=== PATIENT | male | born 1945 | race Caucasian/White ===

== ENCOUNTER 2018-11-19 08:00 | Day surgery (SDC) | payer MEDICARE, BC ==
[2018-11-19] VITALS (8 sets, daily range): BP systolic 112–137; BP diastolic 68–89
[2018-11-19 09:12] LABS: ALBUMIN 2.7 G/DL (3.4-5.0); ANION GAP 14 (8-16); BLOOD UREA NITROGEN 39 MG/DL (7-18); BUN/CREATININE RATIO 16.2 (5.4-32.0); CALCIUM 11.3 MG/DL (8.5-10.1); CHLORIDE 104 MMOL/L (99-107); CREATININE 2.41 MG/DL (0.60-1.10); GLUCOSE 81 MG/DL (70-104); SODIUM 141 MMOL/L (135-145); TOTAL CARBON DIOXIDE 22.7 MMOL/L (24-32); eGFR 26 ML/MIN
[2018-11-19 09:18] LABS: POTASSIUM 4.5 MMOL/L (3.5-5.1)
[2018-11-19] MEDS ORDERED: midazolam 2 mg/2 ml injection IV PRN (09:20)
[2018-11-19] MEDS ORDERED: fentaNYL/PF 50MCG/1 ML 2ML syringe IV PRN (09:20)
[2018-11-19] MEDS ORDERED: LIDOcaine 1%/PF 5ML 10 MG/ML VIAL SQ ONE (09:20)
[2018-11-19 09:22] LABS: BASOPHILS % (AUTO) 0.7 % (0-1); EOSINOPHILS # (AUTO) 0.1 X10'3 (0-0.9); EOSINOPHILS % (AUTO) 1.3 % (0-6); HEMATOCRIT 32.2 % (42.0-52.0); HEMOGLOBIN 10.7 g/dl (14.0-17.9); LYMPHOCYTES # (AUTO) 0.8 X10'3 (1.1-4.8); LYMPHOCYTES % (AUTO) 16.3 % (21-51); MEAN CORPUSCULAR HEMOGLOBIN 31.5 PG (27.0-31.0); MEAN CORPUSCULAR HGB CONC 33.3 % (33.0-36.5); MEAN CORPUSCULAR VOLUME 94.5 FL (78-98); MEAN PLATELET VOLUME 8.4 FL (7.4-10.4); MONOCYTES # (AUTO) 0.3 X10'3 (0-0.9); MONOCYTES % (AUTO) 5.6 % (2-12); NEUTROPHILS # (AUTO) 3.7 X10'3 (1.8-7.7); NEUTROPHILS % (AUTO) 76.1 % (42-75); RED BLOOD COUNT 3.41 X10'6 (4.70-6.10); RED CELL DISTRIBUTION WIDTH 16.3 % (11.5-14.5); WHITE BLOOD COUNT 4.9 X10'3 (4.5-11.0)
[2018-11-19 09:27] LABS: PLATELET COUNT 237 X10'3 (140-440)
[2018-11-19] MEDS ORDERED: CARV3.12 PO (09:31)
[2018-11-19] MEDS ORDERED: ALBU18HF2 INH (09:31)
[2018-11-19] MEDS ORDERED: ATOR80TA PO (09:31)
[2018-11-19] MEDS ORDERED: LEVO50TA8 PO (09:31)
[2018-11-19] MEDS ORDERED: ALB0.5UD IH (09:31)
[2018-11-19] MEDS ORDERED: CLOP75TA15 PO (09:31)
[2018-11-19] MEDS ORDERED: PANT40SU2 PO (09:31)
[2018-11-19] MEDS ORDERED: CLOT15CR73 TP (09:31)
[2018-11-19] MEDS ORDERED: UMEC62.5 INH (09:31)
[2018-11-19] MEDS ORDERED: LORA10TA61 PO (09:31)
[2018-11-19] MEDS ORDERED: AMIO200T27 PO (09:31)
[2018-11-19] MEDS ORDERED: LIDOcaine 1%/PF 5ML 10 MG/ML VIAL ONE (09:39)
[2018-11-19] MEDS ORDERED: sodium chloride 0.45% 1,000 ML IV SCH (09:43)
[2018-11-19] MEDS ORDERED: fentaNYL/PF 50MCG/1 ML 2ML syringe ONE (09:44)
[2018-11-19] MEDS ORDERED: midazolam 2 mg/2 ml injection ONE (09:44)
--- NOTE | 2018-11-19 11:50 | NUR ---
Patient in room . I have received report from Marilia Gaston and had the opportunity to ask questions and assume patient care.
== END 2018-11-19 12:30 | disposition home or self-care (01) ==
LOC: SSTAY O 08:00
PROVIDERS: ATTEND Radiology Vascular & Interventional Radiology
DX: C83.39 Diffuse large B-cell lymphoma, extranodal and solid organ sites (principal); J44.9 Chronic obstructive pulmonary disease, unspecified; I50.9 Heart failure, unspecified; Z79.899 Other long term (current) drug therapy; Z98.890 Other specified postprocedural states
CPT/HCPCS: 36415; 49180; 77012; 80048; 85025; 85610; J2001; J2250; J3010

== ENCOUNTER 2021-01-08 10:50 | Outpatient (CLI) | payer MEDICARE, BC ==
[~2021-01-08 10:50] MED LIST: ALB0.5UD IH; ALBU18HF2 INH; AMIO200T27 PO; ATOR80TA PO; CARV3.12 PO; CLOP75TA15 PO; CLOT15CR73 TP; LEVO50TA8 PO; LORA10TA61 PO; PANT40SU2 PO; UMEC62.5 INH
[2021-01-08] MEDS ORDERED: iohexol 300mg/ml 100ml inj. ONE (11:13)
== END 2021-01-08 23:59 | disposition home or self-care (01) ==
LOC: 64 CT 10:50
PROVIDERS: ATTEND Family Medicine
DX: J98.4 Other disorders of lung (principal); N40.0 Benign prostatic hyperplasia without lower urinary tract symptoms; M42.9 Spinal osteochondrosis, unspecified; N20.0 Calculus of kidney
CPT/HCPCS: 71260; 74177; Q9967

== ENCOUNTER 2021-08-02 07:02 | Day surgery (SDC) | payer MEDICARE, BC ==
[2021-08-02] VITALS (11 sets, daily range): BP systolic 115–158; BP diastolic 70–112
[~2021-08-02] VITALS: Ht 182.9 cm; Wt 81.3 kg
[2021-08-02] MEDS ORDERED: normal saline 1000ml 1,000 ML IV SCH (07:35)
[2021-08-02] MEDS ORDERED: MIDAZolam 1mg/ml 10ml vial IV ONE (07:35)
[2021-08-02] MEDS ORDERED: fentaNYL/PF 50MCG/1 ML 2ML syringe IV ONE (07:35)
[2021-08-02] MEDS ORDERED: FLO0.4C PO (07:41)
[2021-08-02] MEDS ORDERED: LEVO88TA7 PO (07:41)
[2021-08-02] MEDS ORDERED: FINA5TAB11 PO (07:41)
[2021-08-02] MEDS ORDERED: LISI-790 PO (07:41)
[2021-08-02] MEDS ORDERED: ALEN70TA80 PO (07:41)
[2021-08-02] MEDS ORDERED: CALC-234 PO (07:44)
[2021-08-02] MEDS ORDERED: APIX5TAB3 PO (07:44)
[2021-08-02] MEDS ORDERED: MULT-1085 PO (07:44)
[2021-08-02 08:25] LABS: BASOPHILS # (AUTO) 0.1 X10'3 (0-0.2); BASOPHILS % (AUTO) 1.1 % (0-1); EOSINOPHILS # (AUTO) 0.2 X10'3 (0-0.9); EOSINOPHILS % (AUTO) 2.3 % (0-6); HEMATOCRIT 32.7 % (42.0-52.0); LYMPHOCYTES # (AUTO) 0.9 X10'3 (1.1-4.8); MEAN CORPUSCULAR HEMOGLOBIN 30.2 PG (27.0-31.0); MEAN CORPUSCULAR HGB CONC 33.7 g/dL (33.0-36.5); MEAN CORPUSCULAR VOLUME 89.6 FL (78-98); MEAN PLATELET VOLUME 7.5 FL (7.4-10.4); MONOCYTES # (AUTO) 0.5 X10'3 (0-0.9); MONOCYTES % (AUTO) 7.4 % (2-12); NEUTROPHILS # (AUTO) 4.9 X10'3 (1.8-7.7); NEUTROPHILS % (AUTO) 75.2 % (42-75); PLATELET COUNT 489 X10'3 (140-440); RED BLOOD COUNT 3.65 X10'6 (4.70-6.10); RED CELL DISTRIBUTION WIDTH 14.4 % (11.5-14.5); WHITE BLOOD COUNT 6.6 X10'3 (4.5-11.0)
[2021-08-02 09:04] LABS: ANION GAP 10 (8-16); BLOOD UREA NITROGEN 13 MG/DL (7-18); BUN/CREATININE RATIO 11.5 (5.4-32.0); CALCIUM 8.7 MG/DL (8.5-10.1); CHLORIDE 106 MMOL/L (99-107); CREATININE 1.13 MG/DL (0.60-1.10); GLUCOSE 122 MG/DL (70-104); MAGNESIUM 1.9 MG/DL (1.5-2.4); POTASSIUM 3.9 MMOL/L (3.5-5.1); SODIUM 144 MMOL/L (135-145); TOTAL CARBON DIOXIDE 27.6 MMOL/L (24-32); eGFR 63 ML/MIN
== END 2021-08-02 10:45 | disposition home or self-care (01) ==
LOC: SSTAY O 07:02
PROVIDERS: ATTEND Internal Medicine Cardiovascular Disease
DX: I48.3 Typical atrial flutter (principal); I42.9 Cardiomyopathy, unspecified; E03.9 Hypothyroidism, unspecified; I25.10 Atherosclerotic heart disease of native coronary artery without angina pectoris; I70.213 Atherosclerosis of native arteries of extremities with intermittent claudication, bilateral legs; E78.5 Hyperlipidemia, unspecified; J44.9 Chronic obstructive pulmonary disease, unspecified; N19 Unspecified kidney failure; Z85.72 Personal history of non-Hodgkin lymphomas; F10.10 Alcohol abuse, uncomplicated; F17.290 Nicotine dependence, other tobacco product, uncomplicated; Z79.899 Other long term (current) drug therapy; Z79.01 Long term (current) use of anticoagulants; Z80.1 Family history of malignant neoplasm of trachea, bronchus and lung; Z82.49 Family history of ischemic heart disease and other diseases of the circulatory system
CPT/HCPCS: 36415; 80048; 83735; 85025; 85610; 92960; 93005; 94760; 94799; J2250; J3010; J7030

== ENCOUNTER 2021-08-30 06:38 | Day surgery (SDC) | payer MEDICARE, BC ==
[~2021-08-30] VITALS: Ht 182.9 cm; Wt 81.2 kg
[~2021-08-30 06:38] MED LIST changes: -ALB0.5UD IH; -ALBU18HF2 INH; +ALEN70TA80 PO; +APIX5TAB3 PO; +CALC-234 PO; -CARV3.12 PO; -CLOT15CR73 TP; +FINA5TAB11 PO; +FLO0.4C PO; -LEVO50TA8 PO; +LEVO88TA7 PO; +LISI5TAB22 PO; -LORA10TA61 PO; +MULT-1085 PO; -PANT40SU2 PO; -UMEC62.5 INH
[2021-08-30] MEDS ORDERED: MIDAZolam 1mg/ml 10ml vial IV ONE (07:00)
[2021-08-30] MEDS ORDERED: fentaNYL/PF 50MCG/1 ML 2ML syringe IV ONE (07:00)
[2021-08-30] MEDS ORDERED: normal saline 1000ml 1,000 ML IV SCH (07:00)
[2021-08-30 07:10] VITALS: BP 142/62
--- NOTE | 2021-08-30 07:13 | NUR ---
Contacted Dr. Armen MENDOZA, reported EKG done at bedside reports sinus rhythm. confirmed pt was on anti-arrhythmic. Pt was released per Dr. Ayers. Patient and daughter informed.
== END 2021-08-30 07:15 | disposition home or self-care (01) ==
LOC: SSTAY O 06:38
PROVIDERS: ATTEND Internal Medicine Cardiovascular Disease
DX: I48.3 Typical atrial flutter (principal); Z53.8 Procedure and treatment not carried out for other reasons; I42.9 Cardiomyopathy, unspecified; E03.9 Hypothyroidism, unspecified; I25.10 Atherosclerotic heart disease of native coronary artery without angina pectoris; Z95.5 Presence of coronary angioplasty implant and graft; E78.5 Hyperlipidemia, unspecified; J44.9 Chronic obstructive pulmonary disease, unspecified; Z79.899 Other long term (current) drug therapy; Z79.01 Long term (current) use of anticoagulants; Z87.891 Personal history of nicotine dependence; Z98.890 Other specified postprocedural states; Z85.72 Personal history of non-Hodgkin lymphomas; Z80.1 Family history of malignant neoplasm of trachea, bronchus and lung; Z82.49 Family history of ischemic heart disease and other diseases of the circulatory system
CPT/HCPCS: 93005